=== PATIENT | male | born 1980 | race Hispanic/Latino ===

== ENCOUNTER 2021-05-04 00:38 | Emergency (ER) | payer OTHER ==
[~2021-05-04] VITALS: Ht 172.7 cm; Wt 61.2 kg
[2021-05-04 00:47] VITALS: BP 136/81
[2021-05-04] MEDS ORDERED: HYDROCODONE/ACETAMINOPHEN 10/325 MG TAB ONE (01:26)
[2021-05-04] MEDS ORDERED: HYDROCODONE/ACETAMINOPHEN 10/325 MG TAB PO ONE (01:30)
[2021-05-04] MEDS ORDERED: ACET1TAB25 PO (02:14)
[2021-05-04 02:22] VITALS: BP 132/79
== END 2021-05-04 02:30 | disposition home or self-care (01) ==
LOC: EDH 00:38
DX: S82.62XA Displaced fracture of lateral malleolus of left fibula, initial encounter for closed fracture (principal); X58.XXXA Exposure to other specified factors, initial encounter; Y93.89 Activity, other specified; Y92.89 Other specified places as the place of occurrence of the external cause; Y99.8 Other external cause status
CPT/HCPCS: 29515; 73600

== ENCOUNTER 2024-11-10 21:30 | Emergency (ER) | payer BC ==
[~2024-11-10] VITALS: Ht 162.6 cm; Wt 64.4 kg
[~2024-11-10 21:30] MED LIST: ACET-2079 PO
[2024-11-10 21:57] LABS: APPEARANCE,URINE CLEAR (CLEAR); BILIRUBIN,URINE NEGATIVE (NEGATIVE); COLOR,URINE COLORLESS (YELLOW); GLUCOSE, URINE (UA) NEGATIVE (NEGATIVE); KETONES,URINE NEGATIVE (NEGATIVE); LEUKOCYTE ESTERASE ,URINE NEGATIVE Leu/uL (NEGATIVE); NITRATE,URINE NEGATIVE (NEGATIVE); OCCULT BLOOD,URINE NEGATIVE (NEGATIVE); PH,URINE 5.5 (5.0-8.0); PROTEIN,URINE NEGATIVE (NEGATIVE); UROBILINOGEN,URINE 0.2 mg/dL (0.2-1.0)
[2024-11-10 21:59] LABS: ADD UA MICROSCOPIC NO
[2024-11-10 22:04] LABS: AMPHET/METH SCREEN,URINE NEGATIVE (NEGATIVE); BARBITURATE SCREEN, URINE NEGATIVE (NEGATIVE); BENZODIAZEPINES SCREEN,URINE NEGATIVE (NEGATIVE); CANNABINOID SCREEN,URINE POSITIVE (NEGATIVE); COCAINE SCREEN,URINE POSITIVE (NEGATIVE); OPIATE SCREEN,URINE NEGATIVE (NEGATIVE); PHENCYCLIDINE SCREEN,URINE NEGATIVE (NEGATIVE)
--- NOTE | 2024-11-10 22:07 | ERN ---
ED Note History of Present Illness Stated Complaint: CHEST PAINS Chief Complaint: Chest Pain Time Seen by MD: 21:35 Dictation: Patient is a 44-year-old male with a past medical history who presented to the ER complaining of chest pain localized in the middle of chest, no radiation. Patient stated that he uses cocaine, last time he used was today prior come to the ER. Patient also reports alcohol intake. Allergies: Coded Allergies: No Known Drug Allergies (Unverified Allergy, Unknown, 05/04/21) Home Meds Active Scripts Acetaminophen with Codeine (Acetaminophen-Cod #3 Tablet) 1 Each Tablet, 1 TAB PO Q6H PRN for pain, #20 TAB Prov:KYLE AGUIRRE MD 05/04/21 Past Medical History Past Medical History: No Pertinent History Surgical History: None Surgical History Other: SURGERY TO RIGHT KNEE, LEFT ANKLE Family History: Negative Social History: Negative Review of System Dictation NEGATIVE EXCEPT PER HPI Constitutional: Negative for fever,chills, and weight loss Eyes: Negative for injury, pain,redness, and discharge ENT: Negative for injury,pain or swelling Cardiovascular: Chest pain. Respiratory: Negative for shortness of breath, cough, and wheezing, Abdomen/GI: Negative for abdominal pain, nausea, vomiting, diarrhea, and constipation Back: Negative for injury and pain : Negative for injury, bleeding and discharge MS/Extremity: Negative for injury and deformity Skin: Negative for rash, and discoloration Neuro: Negative for headache, weakness, numbness, tingling, and seizure Psych: Negative for suicide ideation, homicidal ideation, and hallucinations Initial Vital Sign VS Vital Signs Date Time Temp Pulse Resp B/P (MAP) Pulse Ox O2 Delivery O2 Flow Rate FiO2 11/10/24 21:36 98.1 111 20 161/101 100 Room Air 11/10/24 22:00 0 21 Physical Exam Dictation General: awake, alert, NAD Head/Face: Normocephalic, atraumatic Eyes: PERRL, EOMI, vision at baseline ENT: oral cavity clear, TMs clear, no signs of infection Neck: Trachea midline, supple, no nuchal rigidity Cardiovascular: RRR, normal S1/S2, No MRGs, no JVD Respiratory: CTAB, no respiratory distress, No rales or wheezes Abdomen: Soft , no tender Skin: Warm, dry, normal turgor, no rash MS/Extremity: Pulses equal, no cyanosis, neurovascular intact, FROM Neuro: COAx4, GCS 15, strength 5/5, CN 2-12 intact, normal cerebellar exam, normal gait, Psych: Normal behavior, mood, and affect normal Results (Laboratory/Radiology) Laboratory/Radiology Laboratory Tests Test 11/10/24 21:41 11/10/24 22:50 11/10/24 23:16 Urine Color COLORLESS (YELLOW) Urine Appearance CLEAR (CLEAR) Urine pH 5.5 (5.0-8.0) Urine Specific Casa 1.002 (1.001-1.031) Urine Protein NEGATIVE mg/dL (NEGATIVE) Urine Glucose (UA) NEGATIVE mg/dL (NEGATIVE) Urine Ketones NEGATIVE mg/dL (NEGATIVE) Urine Occult Blood NEGATIVE (NEGATIVE) Urine Nitrate NEGATIVE (NEGATIVE) Urine Bilirubin NEGATIVE mg/dL (NEGATIVE) Urine Urobilinogen 0.2 mg/dL (0.2-1.0) Urine Leukocyte Esterase NEGATIVE Danielle/uL Urine Opiates Screen NEGATIVE (NEGATIVE) Urine Barbiturates Screen NEGATIVE (NEGATIVE) Urine Phencyclidine Screen NEGATIVE (NEGATIVE) Urine Amphetamines Screen NEGATIVE (NEGATIVE) Urine Benzodiazepines Screen NEGATIVE (NEGATIVE) Urine Cocaine Screen POSITIVE (NEGATIVE) H Urine Marijuana (THC) Screen POSITIVE (NEGATIVE) H White Blood Count 6.6 K/uL (4.8-10.8) Red Blood Count 4.68 MIL/uL (4.50-6.20) Hemoglobin 14.0 g/dL (14.0-18.0) Hematocrit 41.8 % (42-54) L Mean Corpuscular Volume 89.3 fL (79-99) Mean Corpuscular Hemoglobin 29.9 pg (27.0-33.0) Mean Corpuscular Hemoglobin Concent 33.5 g/dL (32.0-36.0) Red Cell Distribution Width 13.8 % (11.0-15.5) Platelet Count 468 K/uL (130-400) H Mean Platelet Volume 8.5 fL (7.5-10.5) Immature Granulocyte % (Auto) 0.3 % (0-1) Neutrophils (%) (Auto) 54.0 % (40.0-77.0) Lymphocytes (%) (Auto) 27.9 % (21.0-51.0) Monocytes (%) (Auto) 9.8 % (3.0-13.0) Eosinophils (%) (Auto) 6.3 % (0.0-8.0) Basophils (%) (Auto) 1.7 % (0.0-5.0) Neutrophils # (Auto) 3.6 K/uL (1.8-7.7) Lymphocytes # (Auto) 1.9 K/uL (1.0-4.8) Monocytes # (Auto) 0.7 K/uL (0.1-1.0) Eosinophils # (Auto) 0.42 K/uL (0.00-0.70) Basophils # (Auto) 0.11 K/uL (0.00-0.20) Absolute Immature Granulocyte (auto 0.02 K/uL (0-1) Nucleated Red Blood Cells 0.0 % (0.0-0.19) Sodium Level 137 mmol/L (136-145) Potassium Level 3.4 mmol/L (3.5-5.1) L Chloride Level 101 mmol/L (101-111) Carbon Dioxide Level 29 mmol/L (21-32) Blood Urea Nitrogen 8 mg/dL (7-18) Creatinine 0.7 mg/dL (0.5-1.3) Glomerular Filtration Rate Calc 117 mL/min (>90) Random Glucose 75 mg/dL (70-105) Total Calcium 8.9 mg/dL (8.5-10.1) Total Creatine Kinase 165 U/L (21-232) Troponin I < 0.05 ng/mL (0.00-0.05) EKG Comment: Sinus rhythm, rate 99, MO 155, QRS 94, QT 347. Negative for STEMI ED Course ED Course Orders Procedure Category Date Status Time Vital Signs Per CPOE 11/10/24 Transmitted Routine 21:35 B-Type Natriuretic LAB 11/10/24 In Process Peptide 21:35 Chest 1vw RAD 11/10/24 Resulted 21:35 12 Lead Ekg Tracing- EKG 11/10/24 Logged Technical 21:35 Oxygen By Nc/Pulse Ox CPOE 11/10/24 Transmitted 21:35 Maintain Iv CPOE 11/10/24 Transmitted 21:35 Iv Insertion CPOE 11/10/24 Transmitted 21:35 Cardiac Monitoring CPOE 11/10/24 Transmitted 21:35 Pulse Oximetry With CPOE 11/10/24 Transmitted Vs And Prn 21:35 Cbc With Differential LAB 11/10/24 In Process 21:35 Activity: Br W/Brp CPOE 11/10/24 Transmitted With Assist 21:35 Creatine Kinase, Total LAB 11/10/24 Complete 21:35 Urinalysis Profile LAB 11/10/24 Complete 21:35 Troponin Poc Order LAB 11/10/24 Complete Only 21:35 Bedside Troponin-I LAB.ER 11/10/24 In Process (Poc) 21:35 Basic Metabolic Panel LAB 11/10/24 Complete 21:35 Drug Screen Urine LAB 11/10/24 Complete 21:43 Aspirin 325mg Ec Tab PHA 11/10/24 Complete (Aspirin 325mg Ec T 22:00 Nitroglycerin 0.4mg PHA 11/10/24 Complete Sl Tab (Nitrostat) 22:00 Lorazepam 0.5 Mg PHA 11/10/24 Complete (Ativan) 22:00 Current Medications Medications (Trade) Dose Ordered Sig/Codie Route PRN Reason Start Time Stop Time Status Last Admin Dose Admin Aspirin (Aspirin 325mg Ec Tab) 325 mg ONCE ONCE PO 11/10/24 22:00 11/10/24 22:01 DC 11/10/24 22:10 Lorazepam (AtiVAN) 0.5 mg ONCE ONCE PO 11/10/24 22:00 11/10/24 22:01 DC 11/10/24 22:10 Nitroglycerin (Nitrostat) 0.4 mg AD ONCE SL 11/10/24 22:00 11/10/24 22:01 DC 11/10/24 22:10 Vital Signs Date Time Temp Pulse Resp B/P (MAP) Pulse Ox O2 Delivery O2 Flow Rate FiO2 11/10/24 23:32 97.9 77 17 121/71 98 Room Air* 0 11/10/24 22:43 98.1 76 18 111/75 97 Room Air* 0 11/10/24 22:00 97.9 83 18 123/77 97 Room Air* 0 11/10/24 21:36 98.1 111 20 161/101 100 Room Air Medical Decision Making MDM 44-year-old male who presented with chest pain after using cocaine/alcohol intake. EKG negative for acute abnormalities. 1-angina due to cocaine Chest pain workup ordered. Medication ordered: Nitroglycerin sublingual 0.4 mg, Ativan 0.5 mg oral ordered Aspirin 325 mg ordered. UDS positive for cocaine and marijuana. Patient chest pain resolved. Troponin within normal limits. Patient will be discharged home, I counseled the patient regarding stop Bystolic pitting illegal substance. DX & DISP Disposition: Discharge Departure Impression: Primary Impression: Angina pectoris Additional Impression: Adverse effect of cocaine Condition: Improved Additional Instructions: RETURN TO ER FOR ANY ACUTE OR WORSENING SYMPTOMS. FOLLOW-UP IN 1-2 DAYS WITH PRIMARY PROVIDER FOR RECHECK OF TODAY'S SYMPTOMS. Referrals: SELF,REFERRAL (PCP) Time of Disposition: 23:35 KENNEDY GEORGE MD Nov 10, 2024 22:07
[2024-11-10] MEDS: ASPIRIN 325MG EC TAB PO ONE (22:10)
[2024-11-10] MEDS: NITROGLYCERIN 0.4 MG SL TAB SL ONE (22:10)
[2024-11-10] MEDS: LORazepam 0.5 MG TABLET PO ONE (22:10)
--- NOTE | 2024-11-10 22:43 | HMCIMG ---
CHEST 1VW HISTORY: Chest pain COMPARISON: None FINDINGS: A frontal projection of the chest was obtained. No acute pulmonary infiltrates is seen. The heart is normal in size. Prominent interstitial markings are seen. No evidence of aortic calcification is seen. IMPRESSION: 1. No acute pulmonary infiltrate is seen.
[2024-11-10 23:04] LABS: BASOPHILS # (AUTO) 0.11 K/uL (0.00-0.20); BASOPHILS % (AUTO) 1.7 % (0.0-5.0); EOSINOPHILS # (AUTO) 0.42 K/uL (0.00-0.70); EOSINOPHILS % (AUTO) 6.3 % (0.0-8.0); HEMATOCRIT 41.8 % (42-54); IMMATURE GRANULOCYTE ABSOLUTE 0.02 K/uL (0-1); LYMPHOCYTES # (AUTO) 1.9 K/uL (1.0-4.8); LYMPHOCYTES % (AUTO) 27.9 % (21.0-51.0); MEAN CORPUSCULAR HEMOGLOBIN 29.9 pg (27.0-33.0); MEAN CORPUSCULAR HGB CONC 33.5 g/dL (32.0-36.0); MEAN CORPUSCULAR VOLUME 89.3 fL (79-99); MONOCYTES # (AUTO) 0.7 K/uL (0.1-1.0); MONOCYTES % (AUTO) 9.8 % (3.0-13.0); NEUTROPHILS # (AUTO) 3.6 K/uL (1.8-7.7); PLATELET COUNT (AUTO) 468 K/uL (130-400); RED BLOOD CELL COUNT(AUTO) 4.68 MIL/uL (4.50-6.20); RED CELL DISTRIBUTION WIDTH 13.8 % (11.0-15.5); WHITE BLOOD COUNT (AUTO) 6.6 K/uL (4.8-10.8)
[2024-11-10 23:11] LABS: CREATININE 0.7 mg/dL (0.5-1.3); POTASSIUM 3.4 mmol/L (3.5-5.1)
[2024-11-10 23:32] VITALS: BP 121/71; PULSE 77; RESP 17; TEMP 97.9; O2SAT 98
[2024-11-10 23:43] LABS: B-TYPE NATRIURETIC PEPTIDE < 5 pg/mL (0-100)
--- NOTE | 2024-11-11 06:55 | EKG ---
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 : 1980 Requested By: KENNEDY FISHER Order Number: [id number] Reading MD: Charlotte Dwyer Measurements Intervals Hugo Rate: 99 P: 60 NV: 155 QRS: 87 QRSD: 94 T: 47 QT: 347 QTc: 445 Interpretive Statements Sinus rhythm No previous ECG available for comparison Electronically Signed On 11-11-2024 14:35:39 BIOLOGICAL AIDE by Charlotte Dwyer Please click the below link to view image of tracing.
== END 2024-11-10 23:40 | disposition home or self-care (01) ==
LOC: EDH 21:30
DX: I20.9 Angina pectoris, unspecified (principal); T40.5X5A Adverse effect of cocaine, initial encounter; Y92.89 Other specified places as the place of occurrence of the external cause
CPT/HCPCS: 36415; 71045; 80048; 80305; 81003; 82550; 83880; 84484; 85025; 93005; 99284